=== PATIENT | female | born 1985 | race Caucasian/White ===

== ENCOUNTER 2023-02-10 09:37 | Emergency (ER) | payer OTHER, SELFPAY ==
[2023-02-10] MEDS ORDERED: Ketorolac Tromethamine 10 MG TAB ONE (10:57)
== END 2023-02-10 11:00 | disposition home or self-care (01) ==
LOC: MADERS 09:37
DX: M54.2 Cervicalgia (principal); F17.210 Nicotine dependence, cigarettes, uncomplicated
CPT/HCPCS: 99283